=== PATIENT | female | born 1980 | race Two or more races ===

== ENCOUNTER 2018-08-04 15:06 | Emergency (ER) | payer MEDICAID ==
[~2018-08-04] VITALS: Ht 157.5 cm; Wt 51.3 kg
[2018-08-04 15:40] VITALS: BP 116/80
--- NOTE | 2018-08-04 15:40 | NUR ---
ED Nurse Note: PT WALKED IN TO ER TODAY FROM HOME. AOX4. PT C/O LEFT SIDED HEADACHE, PAIN 9/10 X 3 DAYS AGO. PT ALSO C/O SOME NAUSEA BUT DENIES VOMITING. PT DENIES DIZZINESS AND GAIT STEADY IN ER. PT ALSO C/O FEELING TIRED.
[2018-08-04] MEDS ORDERED: Ketorolac 30mg Inj IM ONE (15:45)
[2018-08-04] MEDS ORDERED: Metoclopramide 10mg/2ml Inj IM ONE (15:45)
--- NOTE | 2018-08-04 16:07 | Emergency Room Report ---
History of Present Illness General Chief Complaint: Headache Source: Patient Present Illness HPI 38-year-old female with history of recurrent migraine headache here complaining of exacerbation of her migraine headache x3 days. Rating the pain 10 out of 10 in the left side of her head and periorbital with photophobia and nausea vomiting. Denies head injury, recent URI, however does not recall her last menstrual period. Denies abdominal pain, diarrhea, constipation, chest pain, shortness of breath, and all other associated symptoms. Patient has taken some ibuprofen for pain with minimal relief. Patient does not have a primary care provider as has no insurance. She has recently been told that she has migraine by difference provider however has never been tested correctly for migraine headache and no MRI of the brain has been done in the past. Denies having aura. Allergies: Coded Allergies: No Known Allergies (Unverified , 08/04/18) Patient History Past Medical History: see triage record Past Surgical History: unable to obtain Pertinent Family History: none Now: No Immunizations: UTD Reviewed Nursing Documentation: PMH: Agreed; PSxH: Agreed Nursing Documentation-PMH Past Medical History: No Stated History Review of Systems All Other Systems: negative except mentioned in HPI Physical Exam Vital Signs Date Time Temp Pulse Resp B/P (MAP) Pulse Ox O2 Delivery O2 Flow Rate FiO2 08/04/18 15:17 98.2 83 18 114/83 (93) 98 Room Air Sp02 EP Interpretation: reviewed, normal General Appearance: alert, GCS 15, non-toxic, mild distress Eyes: right eye photophobia; bilateral eye normal inspection, bilateral eye PERRL ENT: normal ENT inspection, hearing grossly normal, normal pharynx, no angioedema Neck: normal inspection, full range of motion, supple, thyroid normal Respiratory: normal inspection, chest non-tender, lungs clear, no rhonchi, no wheezing Cardiovascular #1: normal inspection, regular rate, rhythm, no edema, no murmur , normal capillary refill Gastrointestinal: normal inspection, non tender, soft Rectal: deferred Genitourinary: no CVA tenderness Musculoskeletal: normal inspection, back normal, digits/nails normal, gait/ station normal Neurologic: normal inspection, alert, oriented x3, responsive Psychiatric: normal inspection, judgement/insight normal, memory normal Skin: normal inspection, normal color, no rash, warm/dry, palpation normal, well hydrated, normal turgor Lymphatic: normal inspection, no adenopathy Medical Decision Making PA Attestation All my diagnosis and treatment plans were reviewed ad discussed with my supervising physician Dr. Vidales Diagnostic Impression: Primary Impression: Migraine ER Course 38-year-old female with history of recurrent migraine headache here complaining of exacerbation of her migraine headache x3 days. Rating the pain 10 out of 10 in the left side of her head and periorbital with photophobia and nausea vomiting. Denies head injury, recent URI, however does not recall her last menstrual period. Denies abdominal pain, diarrhea, constipation, chest pain, shortness of breath, and all other associated symptoms. Patient has taken some ibuprofen for pain with minimal relief. Patient does not have a primary care provider as has no insurance. She has recently been told that she has migraine by difference provider however has never been tested correctly for migraine headache and no MRI of the brain has been done in the past. Denies having aura. Ddx considered but are not limited to:-Headache without aura, migraine headache without aura, tension headache, cluster headache, Vital signs: are WNL, pt. is afebrile H&PE are most consistent with: Migraine headache without aorta ORDERS: Toradol, Reglan, Zofran, naproxen ED INTERVENTIONS: Toradol and Reglan DISCHARGE: At this time pt. is stable for d/c to home. Will provide printed patient care instructions, and any necessary prescriptions. Care plan and follow up instructions have been discussed with the patient prior to discharge. I gave patient a list of free clinics to walk-in for establishing a primary care provider and referral to neurologist for correct diagnosis of migraine headache Last Vital Signs Date Time Temp Pulse Resp B/P (MAP) Pulse Ox O2 Delivery O2 Flow Rate FiO2 08/04/18 15:40 98.4 86 19 116/80 100 Room Air Disposition: HOME, SELF-CARE Condition: Stable Scripts Ondansetron (Zofran) 4 Mg Tablet 4 MG ORAL Q6H PRN for Nausea & Vomiting, #12 TAB Prov: Kaleb Cameron 08/04/18 Naproxen* (NAPROXEN*) 500 Mg Tablet 500 MG ORAL TWICE A DAY, #30 TAB Prov: Kaleb Cameron 08/04/18 Patient Instructions: Migraine Headache Additional Instructions: Follow-up with a primary care provider for referral to neurologist Kaleb Cameron Aug 04, 2018 16:07
[2018-08-04] MEDS ORDERED: NAPROXEN500 M2 ORAL (16:08)
[2018-08-04] MEDS ORDERED: ZOFRAN4 M1 ORAL (16:08)
--- NOTE | 2018-08-04 16:12 | NUR ---
ED Nurse Note: PT LAYING PEACEFULLY IN BED IN NAD. AOX4. PRESCRIPTIONS AND DISCHARGE PAPERWORK EXPLAINED TO PT. PT VERBALIZES UNDERSTANDING AND ALL QUESTIONS ANSWERED. PRESCRIPTIONS AND DISCHARGE PAPERWORK GIVEN TO PT AND ID WRISTBAND REMOVED. PT WALKED OUT OF ER WITH STEADY GAIT AND ALL BELONGINGS.
[2018-08-04 16:13] VITALS: BP 114/76
== END 2018-08-04 16:14 | disposition home or self-care (01) ==
LOC: EMR 16:00
DX: G43.909 Migraine, unspecified, not intractable, without status migrainosus (principal); R11.2 Nausea with vomiting, unspecified
CPT/HCPCS: 81025; 96372; 99283; J1885; J2765